=== PATIENT | male | born 1965 | race Caucasian/White ===

== ENCOUNTER 2023-12-27 19:49 | Inpatient (IN) | payer MEDICAID ==
[2023-12-27] MEDS ORDERED: HydrOXYzine PAMOATE 50 MG CAPSULE PO PRN (22:00)
[2023-12-27] MEDS ORDERED: GuaiFENesin/D-METHORPHAN [SUGAR-FREE] 200-20MG/10 ML SYRUP UDCUP PO PRN (22:00)
[2023-12-27] MEDS ORDERED: ZOLPIDEM TARTRATE 10 MG TABLET PO PRN (22:00)
[2023-12-27] MEDS ORDERED: OLANZapine 5 MG RAPDIS TABLET PO PRN (22:00)
[2023-12-27] MEDS ORDERED: LOPERAMIDE HCL 2 MG CAPSULE PO PRN (22:00)
[2023-12-27] MEDS ORDERED: TUBERCULIN, PURIFIED PROTEIN DERIVATIVE 5 TU/0.1 ML SYRINGE ID ONE (22:00)
[2023-12-27] MEDS ORDERED: PROMETHAZINE HCL 25 MG TABLET PO PRN (22:00)
[2023-12-27] MEDS ORDERED: LORazepam 2 MG TABLET PO PRN (22:00)
[2023-12-27] MEDS ORDERED: MAG HYDROX/ALUMINUM HYD/SIMETH ES 30 ML SUSPENSION UDCUP PO PRN (22:00)
[2023-12-27] MEDS ORDERED: MAGNESIUM HYDROXIDE SUSPENSION 30 ML UDCUP PO PRN (22:00)
[2023-12-27] MEDS ORDERED: ACETAMINOPHEN 325 MG TABLET PO PRN (22:00)
[2023-12-27] MEDS ORDERED: LORazepam 2 MG/ML VIAL ONE (22:01)
[2023-12-27] MEDS ORDERED: DiphenhydrAMINE HCL 50 MG/ML VIAL ONE (22:02)
[2023-12-27] MEDS ORDERED: HALOPERIDOL LACTATE 5 MG/ML VIAL ONE (22:02)
[2023-12-27] MEDS: DiphenhydrAMINE HCL 50 MG/ML VIAL IM ONE (22:30)
[2023-12-27] MEDS: LORazepam 2 MG/ML VIAL IM ONE (22:30)
[2023-12-27] MEDS: HALOPERIDOL LACTATE 5 MG/ML VIAL IM ONE (22:30)
[2023-12-27 22:41] VITALS: BP 92/0; PULSE 77; RESP 18; TEMP 97.6
[2023-12-28] MEDS: MULTIVITAMINS WITH MINERALS, THERAPEUTIC TABLET PO SCH (08:21)
[2023-12-28] MEDS: NALTREXONE HCL 50 MG TABLET PO SCH (08:21)
[2023-12-28] MEDS: OMEGA-3/DHA/EPA/FISH OIL 1,000 MG CAPSULE PO SCH (08:21)
[2023-12-28] MEDS: THIAMINE 100 MG TABLET PO SCH (08:21)
[2023-12-28] MEDS: DIVALPROEX SODIUM 500 MG ER TABLET PO SCH (08:21)
[2023-12-28] MEDS: FOLIC ACID 1 MG TABLET PO SCH (08:21)
[2023-12-28 08:36] VITALS: BP 128/81; PULSE 68; RESP 16; TEMP 97.6; O2SAT 96
[2023-12-28 08:48] LABS: BASOPHILS % (AUTO) 0.4 % (0.0-2.0); EOSINOPHILS % (AUTO) 4.4 % (1.0-6.0); HEMATOCRIT 39.2 % (41-53); HEMOGLOBIN 13.1 g/dL (13.5-17.5); LYMPHOCYTES # (AUTO) 1.6 K/uL (1.0-4.8); LYMPHOCYTES % (AUTO) 27.3 % (22.0-44.0); MEAN CORPUSCULAR HEMOGLOBIN 32.3 pg (26.0-34.0); MEAN CORPUSCULAR HGB CONC 33.3 G/dL (31.0-37.0); MEAN CORPUSCULAR VOLUME 97 fL (80-100); MONOCYTES # (AUTO) 0.9 K/uL (0.1-1.0); MONOCYTES % (AUTO) 14.4 % (2.0-9.0); NEUTROPHILS # (AUTO) 3.2 K/uL (1.8-7.7); NEUTROPHILS % (AUTO) 53.5 % (40.0-70.0); PLATELET COUNT (AUTO) 129 K/uL (150-450); RED BLOOD CELL COUNT(AUTO) 4.04 MIL/uL (4.50-5.90); RED CELL DISTRIBUTION WIDTH 15.8 % (11.5-14.5)
[2023-12-28 09:10] LABS: HEMOGLOBIN A1C 5.6 % (3.8-5.6)
[2023-12-28 09:24] LABS: ALANINE AMINOTRANSFERASE 60 U/L (12-78); ALBUMIN 2.9 g/dL (3.4-5.0); ALKALINE PHOSPHATASE 125 U/L (46-116); ANION GAP 8 mmol/L (8-16); ASPARTATE AMINOTRANSFERASE 97 U/L (15-37); BILIRUBIN,TOTAL 0.7 mg/dL (0.1-1.0); CALCIUM, TOTAL 8.2 mg/dL (8.8-10.5); CARBON DIOXIDE 25 mmol/L (22-29); CHLORIDE 108 mmol/L (98-107); CHOL/HDL RATIO 2.7 (4.2-7.3); CHOLESTEROL 146 mg/dL (131-200); FREE T4 (FREE THYROXINE) 0.86 ng/dL (0.76-1.46); GLOMERULAR FILTR. RATE CALC > 60 mL/min (>60); GLUCOSE,RANDOM 75 mg/dL (70-110); HDL CHOLESTEROL 54 mg/dL (40-60); LDL CHOL (CALC.) 73 mg/dL (0-130); POTASSIUM 4.1 mmol/L (3.5-5.1); SODIUM SERUM 141 mmol/L (136-145); THYROID STIMULATING HORMONE 4.14 uIU/mL (0.36-3.74); TOTAL PROTEIN, SERUM 6.8 g/dL (6.4-8.2); TRIGLYCERIDES 95 mg/dL (15-150); UREA NITROGEN, BLOOD 13 mg/dL (7-18)
[2023-12-28] MEDS: MELATONIN 5 MG TABLET PO SCH (20:34)
[2023-12-28] MEDS: OLANZapine 5 MG RAPDIS TABLET PO SCH (20:35)
[2023-12-28 20:49] VITALS: BP 126/88; PULSE 60; RESP 16; TEMP 97.8; O2SAT 96
[2023-12-29 08:12] VITALS: BP 137/88; PULSE 95; RESP 17; TEMP 97.7; O2SAT 96
[2023-12-29] MEDS ORDERED: MELA5TAB40 PO (14:11)
[2023-12-29] MEDS ORDERED: DIVA-153 PO (14:11)
[2023-12-29] MEDS ORDERED: NALT50TA33 PO (14:11)
[2023-12-29] MEDS ORDERED: OLAN10TA26 PO (14:11)
[2023-12-29] MEDS ORDERED: OMEG-135 PO (14:11)
[2023-12-29] MEDS: OLANZapine 10 MG RAPDIS TABLET PO SCH (20:25)
[2023-12-29 20:30] VITALS: BP 163/81; PULSE 74; RESP 16; TEMP 98.3; O2SAT 96
[2023-12-30 08:37] VITALS: BP 125/81; PULSE 114; RESP 18; TEMP 97.5; O2SAT 96
== END 2023-12-30 17:25 | disposition home or self-care (01) | DRG 750 ==
LOC: B3A 19:59
PROVIDERS: ADMIT Psychiatry & Neurology Psychiatry; ATTEND Psychiatry & Neurology Psychiatry
PROC: GZHZZZZ Group Psychotherapy (ICD-10-PCS; principal; 2023-12-28)
PROC: GZ58ZZZ Individual Psychotherapy, Cognitive-Behavioral (ICD-10-PCS; 2023-12-28)
DX: F25.9 Schizoaffective disorder, unspecified (principal); F17.200 Nicotine dependence, unspecified, uncomplicated; J44.9 Chronic obstructive pulmonary disease, unspecified; Z91.199 Patient's noncompliance with other medical treatment and regimen due to unspecified reason
CPT/HCPCS: 80053; 80061; 83036; 84439; 84443; 85025; 86592; J1200; J1630; J2060